=== PATIENT | female | born 1990 | race Caucasian/White ===

== ENCOUNTER 2020-10-27 13:06 | Inpatient (IN) ==
[2020-10-27 13:53] LABS: ABS Eosinophils 0.1 10^3/ul (0-0.6); ABS Lymphocytes 1.2 10^3/ul (1.0-4.8); ABS Monocytes 0.5 10^3/ul (0-0.8); ABS Neutrophils 4.3 10^3/ul (1.5-7.7); Eosinophil % 1.3 %; Hematocrit 43 % (35-47); Hemoglobin 14.8 g/dL (12.0-16.0); Lymphocyte % 20.1 %; Mean Corpuscular HGB Conc 34 g/dL (31-36); Mean Corpuscular Hemoglobin 33 pg (27-31); Mean Corpuscular Volume 97 fL (80-97); Mean Platelet Volume 7.7 fL (7.4-10.4); Platelet Count 276 10^3/uL (150-450); Red Blood Count 4.46 10^6 /uL (3.70-4.87); Red Cell Distribution Width 14 % (10-15)
[2020-10-27 14:13] LABS: ALT 11 U/L (7-52); AST 13 U/L (13-39); Albumin 4.4 g/dL (3.2-5.2); Albumin/Globulin Ratio 1.5 (1-3); Alkaline Phosphatase 63 U/L (35-149); Anion Gap 4 mmol/L (2-11); Blood Urea Nitrogen 11 mg/dL (6-24); CO2 Carbon Dioxide 27 mmol/L (22-32); Calcium 9.3 mg/dL (8.6-10.3); Chloride 105 mmol/L (101-111); EGFR African American 102.6 (>60); EGFR Non-African American 84.8 (>60); Globulin 2.9 g/dL (2-4); Glucose 95 mg/dL (70-100); Potassium 3.8 mmol/L (3.5-5.0); Sodium 136 mmol/L (135-145); Total Protein 7.3 g/dL (6.4-8.9)
[2020-10-27 14:16] LABS: HCG Pregnancy < 0.60 mIU/mL
[2020-10-27 14:28] LABS: Acetaminophen < 15 mcg/mL; Alcohol, S < 10 mg/dL (<10); Salicylate < 2.50 mg/dL (<30)
[2020-10-27 14:31] LABS: Urine Benzodiazepine Screen None Detected (None Detect); Urine Cannabinoids Screen None Detected (None Detect); Urine Opiates Screen None Detected (None Detect)
[2020-10-27 14:39] LABS: TSH Ultra Thyroid Stim Horm 1.93 mcIU/mL (0.34-5.60)
[2020-10-27] MEDS ORDERED: Al Hydrox/Mg Hydrox/Simet LIQ 30 ML UDC PO PRN (22:31)
[2020-10-27] MEDS ORDERED: CHLORPROMAZINE 50 MG PO (22:32)
[2020-10-27] MEDS ORDERED: diphenhydraMINE PO* 50 MG Q8H PRN PO (22:33)
[2020-10-28] MEDS: Vitamin THERAPEUTIC TAB PO SCH (07:46)
[2020-10-29 08:02] LABS: HDL Cholesterol 52.1 mg/dL
[2020-10-29] MEDS: Vitamin THERAPEUTIC TAB PO SCH (09:03)
[2020-10-30] MEDS: Vitamin THERAPEUTIC TAB PO SCH (09:30)
[2020-10-31] MEDS: Vitamin THERAPEUTIC TAB PO SCH (07:56)
[2020-10-31] MEDS ORDERED: LoraTADine 10 mg TAB (NF) PO SCH ×2 (14:00)
[2020-11-01] MEDS: PSEUDOEPHEDRINE PO SCH (08:22)
[2020-11-01] MEDS: LORATADINE PO SCH (08:22)
[2020-11-01] MEDS: Vitamin THERAPEUTIC TAB PO SCH (08:23)
[2020-11-02] MEDS: PSEUDOEPHEDRINE PO SCH (10:20)
[2020-11-02] MEDS: Vitamin THERAPEUTIC TAB PO SCH (10:20)
[2020-11-02] MEDS: LORATADINE PO SCH (10:20)
[2020-11-03 08:13] VITALS: BP 107/67
[2020-11-03] MEDS: Vitamin THERAPEUTIC TAB PO SCH (08:34)
[2020-11-03] MEDS: LORATADINE PO SCH (08:36)
[2020-11-03] MEDS: PSEUDOEPHEDRINE PO SCH (08:36)
== END 2020-11-03 17:00 | disposition home or self-care (01) | DRG 753 ==
LOC: ED 13:06 → BSU 21:45
PROVIDERS: ADMIT Psychiatry & Neurology Addiction Psychiatry; ATTEND Psychiatry & Neurology Psychiatry